=== PATIENT | female | born 1945 | race Caucasian/White ===

== ENCOUNTER 2020-08-25 13:24 | Inpatient (IN) | payer MEDICARE, OTHER ==
[~2020-08-25] VITALS: Ht 157.5 cm; Wt 58.1 kg
[~2020-08-25 13:24] MED LIST: AUGMENTIN 875-1 EACH PO; AVAPRO75 MG PO; CIPRO500 MG PO; IMURAN TAB 50 M50 MG PO; KLONOPIN TAB 00.5 MG PO; PEPCID40 MG PO; PRAVACHOL20 MG PO; SYNTHROID75 MCG PO
[2020-08-25 14:33] LABS: HEMOGLOBIN 11.9 gm/dl (12.3-15.3); RED BLOOD COUNT 3.51 M/UL (4.00-5.10); WHITE BLOOD COUNT 5.1 K/UL (4.5-11.0)
[2020-08-25 16:10] LABS: BUN/CREATININE RATIO 22 (0-10)
[2020-08-25] MEDS ORDERED: LEVOTHYROXINE50 MC1 PO (16:11)
[2020-08-25] MEDS ORDERED: IRBESARTAN150 MG PO (16:14)
[2020-08-25] MEDS ORDERED: ALLEGRA ALLERG180 MG PO (16:15)
[2020-08-26 06:17] LABS: HEMOGLOBIN 10.9 gm/dl (12.3-15.3); RED BLOOD COUNT 3.26 M/UL (4.00-5.10)
[2020-08-26 06:22] LABS: WHITE BLOOD COUNT 6.8 K/UL (4.5-11.0)
[2020-08-26 06:36] LABS: BUN/CREATININE RATIO 24 (0-10)
[2020-08-26 21:12] LABS: HEMOGLOBIN 9.3 gm/dl (12.3-15.3)
[2020-08-26 21:13] LABS: RED BLOOD COUNT 2.7 M/UL (4.00-5.10); WHITE BLOOD COUNT 10.5 K/UL (4.5-11.0)
[2020-08-26 21:31] LABS: BUN/CREATININE RATIO 23 (0-10)
[2020-08-27 06:28] LABS: HEMOGLOBIN 9.7 gm/dl (12.3-15.3); RED BLOOD COUNT 2.86 M/UL (4.00-5.10)
[2020-08-27 06:35] LABS: WHITE BLOOD COUNT 7.7 K/UL (4.5-11.0)
[2020-08-27 06:48] LABS: BUN/CREATININE RATIO 23 (0-10)
[2020-08-28 04:24] LABS: WHITE BLOOD COUNT 7.7 K/UL (4.5-11.0)
[2020-08-28 04:41] LABS: BUN/CREATININE RATIO 22 (0-10)
[2020-08-28 04:45] LABS: HEMOGLOBIN 7.7 gm/dl (12.3-15.3); RED BLOOD COUNT 2.27 M/UL (4.00-5.10)
[2020-08-29 06:22] LABS: HEMOGLOBIN 9.5 gm/dl (12.3-15.3)
[2020-08-29 06:25] LABS: RED BLOOD COUNT 2.99 M/UL (4.00-5.10)
[2020-08-29 06:39] LABS: BUN/CREATININE RATIO 27 (0-10)
--- NOTE | 2020-08-29 18:07 | NUR ---
08/29/20 1805 SAT IN CHAIR FOR 1 HOUR TOLERATED WELL
[2020-08-30 05:54] LABS: HEMOGLOBIN 9.2 gm/dl (12.3-15.3); RED BLOOD COUNT 2.89 M/UL (4.00-5.10)
[2020-08-30 06:27] LABS: BUN/CREATININE RATIO 22 (0-10)
[2020-08-31 03:31] LABS: HEMOGLOBIN 8.8 gm/dl (12.3-15.3); RED BLOOD COUNT 2.75 M/UL (4.00-5.10); WHITE BLOOD COUNT 6.5 K/UL (4.5-11.0)
[2020-08-31 03:59] LABS: BUN/CREATININE RATIO 26 (0-10)
--- NOTE | 2020-08-31 12:37 | NUR ---
08/31/20 1235 REPORT CALLED TO [facility] TO OLIVIA BECKER AT [phone]
== END 2020-08-31 14:45 | DRG 522 ==
LOC: ER1 13:24 → CDU 15:42 → MED SURG 4 15:42
PROVIDERS: Family Medicine; Internal Medicine; Orthopaedic Surgery; Physician Assistant; ADMIT Internal Medicine
PROC: 0SR90JZ Replacement of Right Hip Joint with Synthetic Substitute, Open Approach (ICD-10-PCS; principal; 2020-08-26 18:15)
PROC: 30233N1 Transfusion of Nonautologous Red Blood Cells into Peripheral Vein, Percutaneous Approach (ICD-10-PCS; 2020-08-28)
DX: S72.001A Fracture of unspecified part of neck of right femur, initial encounter for closed fracture (principal); D62 Acute posthemorrhagic anemia; M35.89 Other specified systemic involvement of connective tissue; W18.39XA Other fall on same level, initial encounter; E03.9 Hypothyroidism, unspecified; Z82.49 Family history of ischemic heart disease and other diseases of the circulatory system; Z90.49 Acquired absence of other specified parts of digestive tract; I10 Essential (primary) hypertension; Z90.710 Acquired absence of both cervix and uterus; Z20.822 Contact with and (suspected) exposure to COVID-19
CPT/HCPCS: 36415; 36430; 71045; 72170; 73110; 73502; 80048; 80053; 84439; 84443; 85025; 85027; 86850; 86900; 86901; 86920; 96374; 96375; 96376; 97116-GP-CQ; 97163; 97166; 97530; 97530-GP-CQ; 97535; 99284; C1713; C1776; J0171; J0690; J1100; J1650; J1885; J2270; J2310; J2370; J2405; J2704; J2795; J3370; J7030; J7050; J7120; P9016; U0002

== ENCOUNTER → 2020-09-29 | Outpatient (CLI) | payer MEDICARE, OTHER ==
[~2020-09-29] MED LIST changes: +ALLEGRA ALLERG180 MG PO; +IRBESARTAN150 MG PO; +LEVOTHYROXINE50 MC1 PO
== END ==
LOC: KOH-I 13:57
DX: M79.671 Pain in right foot (principal)
CPT/HCPCS: 73630

== ENCOUNTER → 2022-01-26 | Outpatient (CLI) | payer MEDICARE, OTHER | LOC: LAB 11:47 | DX: R05.9 Cough, unspecified (principal); Z20.822 Contact with and (suspected) exposure to COVID-19 | CPT/HCPCS: U0002 ==